=== PATIENT | male | born 1960 | race Caucasian/White ===

== ENCOUNTER 2017-06-16 03:14 | Emergency (ER) | payer BC ==
--- NOTE | 2017-06-16 03:30 | EDM.PDOC ---
ED HPI GENERAL MEDICAL PROBLEM - General Stated Complaint: LEFT FOOT PAIN Time Seen by Provider: 06/16/17 03:26 - History of Present Illness INITIAL COMMENTS - FREE TEXT/NARRATIVE: HISTORY AND PHYSICAL: History of present illness: Patient 37-year-old male history of gouty arthritis presents with concern of left foot pain he did state he had some minor trauma to his left foot recently but is unsure if this is the cause tenderness is quite exquisite and consistent with an episode he had several years prior to his right foot. He denies fever chills nausea vomiting or other complaints Review of systems: As per history of present illness and below otherwise all systems reviewed and negative. Past medical history: As per history of present illness and as reviewed below otherwise noncontributory. Surgical history: As per history of present illness and as reviewed below otherwise noncontributory. Social history: No reported history of drug or alcohol abuse. Family history: As per history of present illness and as reviewed below otherwise noncontributory. Physical exam: HEENT: Atraumatic, normocephalic, pupils reactive, negative for conjunctival pallor or scleral icterus, mucous membranes moist, throat clear, neck supple, nontender, trachea midline. Lungs: Clear to auscultation, breath sounds equal bilaterally, chest nontender. Heart: S1S2, regular, negative for clicks, rubs, or JVD. Abdomen: Soft, nondistended, nontender. Negative for masses or hepatosplenomegaly. Negative for costovertebral tenderness. Pelvis: Stable nontender. Genitourinary: Deferred. Rectal: Deferred. Extremities: Left foot has some swelling and erythema greatest the region of his first digit. No gross deformity neurovascular exam is unremarkable Neuro: Awake, alert, oriented. Cranial nerves II through XII unremarkable. Cerebellum unremarkable. Motor and sensory unremarkable throughout. Exam nonfocal. Diagnostics: X-ray left foot Therapeutics: None Impression: #1 left foot pain #2 probable gouty arthritis Definitive disposition and diagnosis as appropriate pending reevaluation and review of above. - Related Data Allergies Allergy/AdvReac Type Severity Reaction Status Date / Time Penicillins Allergy Itching Verified 10/01/13 15:17 Home Meds: Home Meds oxyCODONE HCl/Acetaminophen [oxyCODONE-Acetaminophen 5-325] 1 tab PO Q4H PRN # 40 10/03/13 [Rx] Social & Family History - Tobacco Use Smoking Status *Q: Never Smoker Second Hand Smoke Exposure: No - Alcohol Use Days Per Week of Alcohol Use: 1 - Recreational Drug Use Recreational Drug Use: No Drug Use in Last 12 Months: No ED ROS GENERAL - Review of Systems Review Of Systems: ROS reveals no pertinent complaints other than HPI. ED EXAM, GENERAL - Physical Exam Exam: See Below (See dictation) Departure - Departure Time of Disposition: 03:29 Disposition: Home, Self-Care 01 Condition: Good Clinical Impression: Foot pain, History of acute gouty arthritis - Discharge Information Referrals: Pete Richter MD [Primary Care Provider] - Additional Instructions: The following information is given to patients seen in the emergency department who are being discharged to home. This information is to outline your options for follow-up care. We provide all patients seen in our emergency department with a follow-up referral. The need for follow-up, as well as the timing and circumstances, are variable depending upon the specifics of your emergency department visit. If you don't have a primary care physician on staff, we will provide you with a referral. We always advise you to contact your personal physician following an emergency department visit to inform them of the circumstance of the visit and for follow-up with them and/or the need for any referrals to a consulting specialist. The emergency department will also refer you to a specialist when appropriate. This referral assures that you have the opportunity for followup care with a specialist. All of these measure are taken in an effort to provide you with optimal care, which includes your followup. Under all circumstances we always encourage you to contact your private physician who remains a resource for coordinating your care. When calling for followup care, please make the office aware that this follow-up is from your recent emergency room visit. If for any reason you are refused follow-up, please contact the [facility] emergency department at and asked to speak to the emergency department charge nurse. [facility] - [facility] Professional [address], [address] [place] [address] Indomethacin as prescribed follow-up private medical doctor call to schedule routine appointment with orthopedic surgery above return as needed as discussed
[2017-06-16] MEDS ORDERED: Ketorolac 60 MG/2 ML SDV IM ONE (06:12)
--- NOTE | 2017-06-16 18:04 | CR ---
EXAM DATE: 06/16/17 PATIENT'S AGE: 57 Patient: STACEY CHACON Facility: [place], [place] Site . Site : [id number] Study: XRay Extremity Left [id number] 4:30:20 AM Ordering Physician: Heidi Martinez Final Report: Indication: Foot swelling Technique: Two views left foot Comparison: None Findings: Bones: Alignment is normal. No fractures or bone lesions. Joint spaces: Unremarkable. Soft tissues: Mild soft tissue swelling of the foot. Impression: Soft tissue swelling in the foot. No osseous abnormality. Dictated by Octavia Bhatti MD @ Jun 16 2017 5:45AM (Electronic Signature) Report Signed by Proxy. MOHIT
== END 2017-06-16 06:35 | disposition home or self-care (01) ==
LOC: MW.ED 03:14
DX: M79.672 Pain in left foot (principal); Z88.0 Allergy status to penicillin
CPT/HCPCS: 73620; 96372; 99283; J1885; 99282

== ENCOUNTER 2018-12-20 00:37 | Observation (INO) | payer BC ==
[2018-12-20] MEDS ORDERED: Diltiazem 25 MG/5 ML SDV IVPUSH ONE ×2 (00:51→05:46)
[2018-12-20] MEDS ORDERED: Aspirin 81 MG Tab.Chew PO ONE (00:52)
--- NOTE | 2018-12-20 00:52 | EDM.PDOC ---
ED HPI GENERAL MEDICAL PROBLEM - General Chief Complaint: Cardiovascular Problem Stated Complaint: HIGH BLOOD PRESSURE Time Seen by Provider: 12/20/18 01:00 - History of Present Illness INITIAL COMMENTS - FREE TEXT/NARRATIVE: HISTORY AND PHYSICAL: History of present illness: Patient's 58-year-old white male with history of hypertension and gout who presents with a concern of palpitations and weakness. He denies chest pain nausea vomiting shortness of breath or diaphoresis Review of systems: As per history of present illness and below otherwise all systems reviewed and negative. Past medical history: As per history of present illness and as reviewed below otherwise noncontributory. Surgical history: As per history of present illness and as reviewed below otherwise noncontributory. Social history: No reported history of drug or alcohol abuse. Family history: As per history of present illness and as reviewed below otherwise noncontributory. Physical exam: HEENT: Atraumatic, normocephalic, pupils reactive, negative for conjunctival pallor or scleral icterus, mucous membranes moist, throat clear, neck supple, nontender, trachea midline. Lungs: Clear to auscultation, breath sounds equal bilaterally, chest nontender. Heart: S1S2, irregularly irregular negative for clicks, rubs, or JVD. Abdomen: Soft, nondistended, nontender. Negative for masses or hepatosplenomegaly. Negative for costovertebral tenderness. Pelvis: Stable nontender. Genitourinary: Deferred. Rectal: Deferred. Extremities: Atraumatic, negative for cords or calf pain. Neurovascular unremarkable. Neuro: Awake, alert, oriented. Cranial nerves II through XII unremarkable. Cerebellum unremarkable. Motor and sensory unremarkable throughout. Exam nonfocal. Diagnostics: CBC CMP troponin PT/INR chest x-ray EKG Therapeutics: IV O2 monitor Cardizem 25 mg IV aspirin 325 mg by mouth Lovenox milligram per kilogram Impression: #1 new onset atrial fibrillation Definitive disposition and diagnosis as appropriate pending reevaluation and review of above. - Related Data Allergies Allergy/AdvReac Type Severity Reaction Status Date / Time Penicillins Allergy Itching Verified 10/01/13 15:17 Home Meds: Home Meds Losartan/Hydrochlorothiazide [Losartan-HCTZ 100-12.5 MG] 1 each PO 12/20/18 [ History] Past Medical History HEENT History: Reports: Other (See Below) Other HEENT History: waers corrective glasses Respiratory History: Reports: Other (See Below) Other Respiratory History: pneumonia when 18yrs old Musculoskeletal History: Reports: Gout Social & Family History - Family History Family Medical History: Noncontributory - Caffeine Use Caffeine Use: Reports: Soda ED ROS GENERAL - Review of Systems Review Of Systems: ROS reveals no pertinent complaints other than HPI. ED EXAM, GENERAL - Physical Exam Exam: See Below (dictation) Course - Vital Signs Last Recorded V/S: Last Vital Signs Temp 36.6 C 12/20/18 00:59 Pulse 80 12/20/18 01:17 Resp 18 12/20/18 01:17 BP 102/57 L 12/20/18 01:17 Pulse Ox 96 12/20/18 01:17 - Orders/Labs/Meds Orders: Active Orders 24 hr Category Date Time Status Patient Status [ADT] Stat ADT 12/20/18 01:05 Active Cardiac Monitoring [RC] . DIRECTED Care 12/20/18 00:49 Active EKG Documentation Completion [RC] STAT Care 12/20/18 00:50 Active Pulse Oximetry [RC] ASDIRECTED Care 12/20/18 00:49 Active UA RFX REMINGTON AND CULT IF INDIC [URIN] Stat Lab 12/20/18 00:49 Ordered Sodium Chloride 0.9% [Normal Saline] 500 ml Med 12/20/18 01:30 Active IV .BOLUS Saline Lock Insert [OM.PC] Stat Oth 12/20/18 00:49 Ordered Medication Orders Sodium Chloride (Normal Saline) 500 mls @ 999 mls/hr IV .BOLUS MAYNOR Last Admin: 12/20/18 01:26 Dose: 999 mls/hr Labs: Laboratory Tests 12/20/18 12/20/18 12/20/18 Range/Units 00:45 00:45 00:45 WBC 6.62 (4.0-11.0) K/uL RBC 5.16 (4.50-5.90) M/uL Hgb 16.3 (13.0-17.0) g/dL Hct 47.0 (38.0-50.0) % MCV 91.1 (80.0-98.0) fL MCH 31.6 (27.0-32.0) pg MCHC 34.7 (31.0-37.0) g/dL RDW Std Deviation 41.8 (28.0-62.0) fl RDW Coeff of Lacy 13 (11.0-15.0) % Plt Count 183 (150-400) K/uL MPV 11.30 (7.40-12.00) fL Neut % (Auto) 39.2 L (48.0-80.0) % Lymph % (Auto) 42.6 H (16.0-40.0) % Morrison % (Auto) 11.0 (0.0-15.0) % Eos % (Auto) 6.6 (0.0-7.0) % Baso % (Auto) 0.6 (0.0-1.5) % Neut # (Auto) 2.6 (1.4-5.7) K/uL Lymph # (Auto) 2.8 H (0.6-2.4) K/uL Morrison # (Auto) 0.7 (0.0-0.8) K/uL Eos # (Auto) 0.4 (0.0-0.7) K/uL Baso # (Auto) 0.0 (0.0-0.1) K/uL Nucleated RBC % 0.0 /100WBC Nucleated RBCs # 0 K/uL INR 0.94 Sodium 136 (136-148) mmol/L Potassium 3.5 (3.5-5.1) mmol/L Chloride 101 (98-107) mmol/L Carbon Dioxide 27.2 (21.0-32.0) mmol/L BUN 16 (7.0-18.0) mg/dL Creatinine 1.1 (0.8-1.3) mg/dL Est Cr Clr Drug Dosing 84.74 mL/min Estimated GFR (MDRD) > 60.0 ml/min Glucose 100 (74-106) mg/dL Calcium 9.0 (8.5-10.1) mg/dL Total Bilirubin 0.4 (0.2-1.0) mg/dL AST 32 (15-37) IU/L ALT 58 (14-63) IU/L Alkaline Phosphatase 106 (46-116) U/L Troponin I < 0.050 (0.000-0.056) ng/mL Total Protein 7.6 (6.4-8.2) g/dL Albumin 4.0 (3.4-5.0) g/dL Globulin 3.6 (2.6-4.0) g/dL Albumin/Globulin Ratio 1.1 (0.9-1.6) Meds: Medications Generic Name Dose Route Start Last Admin Trade Name Juliet PRN Reason Stop Dose Admin Sodium Chloride 500 mls @ 999 mls/hr 12/20/18 01:30 12/20/18 01:26 Normal Saline IV 999 mls/hr .BOLUS MAYNOR Administration Discontinued Medications Generic Name Dose Route Start Last Admin Trade Name Juliet PRN Reason Stop Dose Admin Aspirin 324 mg 12/20/18 00:52 12/20/18 01:09 Aspirin PO 12/20/18 00:53 324 mg ONETIME ONE Administration Diltiazem HCl 25 mg 12/20/18 00:51 12/20/18 01:10 Diltiazem IVPUSH 12/20/18 00:52 25 mg ONETIME ONE Administration Enoxaparin Sodium 123 mg 12/20/18 00:54 12/20/18 01:10 Lovenox SUBCUT 12/20/18 00:55 123 mg ONETIME ONE Administration Departure - Departure Time of Disposition: 02:04 Disposition: Refer to Observation Condition: Good Clinical Impression: Atrial fibrillation with RVR - My Orders Last 24 Hours: My Active Orders 12/20/18 00:49 Cardiac Monitoring [RC] . DIRECTED Pulse Oximetry [RC] ASDIRECTED UA RFX REMINGTON AND CULT IF INDIC [URIN] Stat Saline Lock Insert [OM.PC] Stat 12/20/18 00:50 EKG Documentation Completion [RC] STAT 12/20/18 01:05 Patient Status [ADT] Stat 12/20/18 01:30 Sodium Chloride 0.9% [Normal Saline] 500 ml IV .BOLUS - Assessment/Plan Last 24 Hours: My Active Orders 12/20/18 00:49 Cardiac Monitoring [RC] . DIRECTED Pulse Oximetry [RC] ASDIRECTED UA RFX REMINGTON AND CULT IF INDIC [URIN] Stat Saline Lock Insert [OM.PC] Stat 12/20/18 00:50 EKG Documentation Completion [RC] STAT 12/20/18 01:05 Patient Status [ADT] Stat 12/20/18 01:30 Sodium Chloride 0.9% [Normal Saline] 500 ml IV .BOLUS
[2018-12-20] MEDS ORDERED: Enoxaparin 150 MG/1 ML Syringe SUBCUT ONE (00:54)
[2018-12-20] MEDS ORDERED: Sodium Chloride 0.9% 500 ML IV SCH (01:30)
--- NOTE | 2018-12-20 01:36 | CR ---
INDICATION: Shortness of breath TECHNIQUE: Chest radiograph 1 view COMPARISON: None FINDINGS: Moderate degradation of image quality noted due to body habitus. Mediastinum: The mediastinum is normal in appearance. The heart silhouette is normal in size and morphology. Lung: Both lungs are unremarkable in appearance. No sign of pleural effusion seen. No pneumothorax is identified. IMPRESSION: 1. No acute cardiopulmonary disease is seen. Dictated by: Say Bell MD @ 12/20/2018 01:34:09 (Electronically Signed)
[2018-12-20 01:43] LABS: CHLORIDE,CL 101 mmol/L (98-107); SODIUM,NA 136 mmol/L (136-148)
[2018-12-20 06:55] LABS: CHLORIDE,CL 102 mmol/L (98-107); SODIUM,NA 138 mmol/L (136-148)
[2018-12-20] MEDS ORDERED: Ondansetron 4 MG/2 ML SDV IVPUSH PRN (08:18)
[2018-12-20] MEDS ORDERED: Acetaminophen 325 MG Tab PO PRN (08:18)
--- NOTE | 2018-12-20 08:21 | PCM.HP ---
H&P History of Present Illness - General Date of Service: 12/20/18 Admit Problem/Dx: Admission Diagnosis/Problem Admission Diagnosis/Problem Atrial fibrillation Source of Information: Patient History Limitations: Reports: No Limitations - History of Present Illness Initial Comments - Free Text/Narative: This 58 year old male with pmh of HTN presented to the ED with complaints of palpitations and lightheadedness. He reports the palpitations have been there off and on for a few months, but last night they were very severe and caused lightheadedness. He denies chest pain or diaphoresis. No abdominal pain or nausea. He reports he has also noticed his BP elevating more than usual as well , he attempted to get into his PCP, but couldn't for a very long time. He denies history of CAD or DM. No CHF. He denies tobacco abuse and no alcohol or recreational drug use. In the ED, CBC WNL, as well as BMP. CXR negative. HR elevated as high as 150's afib. He was given Diltiazem 20 mg IV, which brought HR down to 80s, still afib. He was given full dose Lovenox and ASA in the ED. He will be admitted for new onset a fib. no pain Pain Score (Numeric/FACES): 0 - Related Data Allergies/Adverse Reactions: Allergies Allergy/AdvReac Type Severity Reaction Status Date / Time Penicillins Allergy Itching Verified 12/20/18 02:29 Home Medications: Home Meds Losartan/Hydrochlorothiazide [Losartan-HCTZ 100-12.5 MG] 1 each PO DAILY [History] Past Medical History HEENT History: Reports: Other (See Below) Other HEENT History: waers corrective glasses Cardiovascular History: Reports: Hypertension. Denies: Afib, Blood Clots/VTE/ DVT, CAD, NM, Stents Respiratory History: Reports: None. Denies: Asthma, COPD, PE Gastrointestinal History: Reports: None. Denies: GERD, GI Bleed Genitourinary History: Reports: None. Denies: UTI, Recurrent Musculoskeletal History: Reports: Gout Neurological History: Reports: None. Denies: CVA, TIA Psychiatric History: Reports: None Endocrine/Metabolic History: Reports: None. Denies: Diabetes, Type II, Hypothyroidism Hematologic History: Reports: None Dermatologic History: Reports: None - Infectious Disease History Infectious Disease History: Reports: None - Past Surgical History Cardiovascular Surgical History: Reports: None Social & Family History - Family History Family Medical History: Noncontributory - Tobacco Use Smoking Status *Q: Never Smoker - Caffeine Use Caffeine Use: Reports: Coffee - Recreational Drug Use Recreational Drug Use: No - Living Situation & Occupation Occupation: Employed H&P Review of Systems - Review of Systems: Review Of Systems: See Below General: Denies: Fever, Chills, Malaise, Weakness HEENT: Denies: Hearing Changes, Sinus Congestion, Sore Throat, Visual Changes Pulmonary: Reports: Shortness of Breath (with palpitations) Cardiovascular: Reports: Palpitations, Lightheadedness. Denies: Chest Pain Gastrointestinal: Reports: No Symptoms. Denies: Abdominal Pain, Nausea, Vomiting Genitourinary: Reports: No Symptoms. Denies: Dysuria, Frequency, Burning Musculoskeletal: Reports: No Symptoms Skin: Reports: No Symptoms Psychiatric: Reports: No Symptoms Neurological: Reports: No Symptoms Hematologic/Lymphatic: Reports: No Symptoms Immunologic: Reports: No Symptoms Exam - Exam Exam: See Below - Vital Signs Vital Signs: Last Vital Signs Temp 96.9 F 12/20/18 03:05 Pulse 98 12/20/18 03:05 Resp 18 12/20/18 03:05 BP 159/77 H 12/20/18 03:05 Pulse Ox 96 12/20/18 03:05 Weight: 123.785 kg - Exam General: Alert, Oriented, Cooperative HEENT: Conjunctiva Clear, Mucosa Moist & [place], Pupils Equal Neck: Supple, Trachea Midline Lungs: Clear to Auscultation, Normal Respiratory Effort Cardiovascular: Regular Rate, Normal S1, Normal S2, Irregular Rhythm. No: Tachycardia, Systolic Murmur GI/Abdominal Exam: Normal Bowel Sounds, Soft, Non-Tender, No Distention Back Exam: Normal Inspection, Full Range of Motion Extremities: Normal Inspection, Normal Range of Motion, Non-Tender, No Pedal Edema Neuro Extensive - Mental Status: Alert, Oriented x3 Neuro Extensive - Motor, Sensory, Reflexes: CN II-XII Intact Psychiatric: Alert, Normal Affect, Normal Mood - Patient Data Lab Results Last 24 hrs: Laboratory Results - last 24 hr 12/20/18 12/20/18 12/20/18 Range/Units 00:45 00:45 00:45 WBC 6.62 (4.0-11.0) K/uL RBC 5.16 (4.50-5.90) M/uL Hgb 16.3 (13.0-17.0) g/dL Hct 47.0 (38.0-50.0) % MCV 91.1 (80.0-98.0) fL MCH 31.6 (27.0-32.0) pg MCHC 34.7 (31.0-37.0) g/dL RDW Std Deviation 41.8 (28.0-62.0) fl RDW Coeff of Lacy 13 (11.0-15.0) % Plt Count 183 (150-400) K/uL MPV 11.30 (7.40-12.00) fL Neut % (Auto) 39.2 L (48.0-80.0) % Lymph % (Auto) 42.6 H (16.0-40.0) % [place] % (Auto) 11.0 (0.0-15.0) % Eos % (Auto) 6.6 (0.0-7.0) % Baso % (Auto) 0.6 (0.0-1.5) % Neut # (Auto) 2.6 (1.4-5.7) K/uL Lymph # (Auto) 2.8 H (0.6-2.4) K/uL [place] # (Auto) 0.7 (0.0-0.8) K/uL Eos # (Auto) 0.4 (0.0-0.7) K/uL Baso # (Auto) 0.0 (0.0-0.1) K/uL Nucleated RBC % 0.0 /100WBC Nucleated RBCs # 0 K/uL INR 0.94 Sodium 136 (136-148) mmol/L Potassium 3.5 (3.5-5.1) mmol/L Chloride 101 (98-107) mmol/L Carbon Dioxide 27.2 (21.0-32.0) mmol/L BUN 16 (7.0-18.0) mg/dL Creatinine 1.1 (0.8-1.3) mg/dL Est Cr Clr Drug Dosing 84.74 mL/min Estimated GFR (MDRD) > 60.0 ml/min Glucose 100 (74-106) mg/dL Calcium 9.0 (8.5-10.1) mg/dL Total Bilirubin 0.4 (0.2-1.0) mg/dL AST 32 (15-37) IU/L ALT 58 (14-63) IU/L Alkaline Phosphatase 106 (46-116) U/L Troponin I < 0.050 (0.000-0.056) ng/mL Total Protein 7.6 (6.4-8.2) g/dL Albumin 4.0 (3.4-5.0) g/dL Globulin 3.6 (2.6-4.0) g/dL Albumin/Globulin Ratio 1.1 (0.9-1.6) Urine Color Urine Appearance Urine pH (5.0-8.0) Ur Specific [place] (1.001-1.035) Urine Protein (NEGATIVE) mg/dL Urine Glucose (UA) (NEGATIVE) mg/dL Urine Ketones (NEGATIVE) mg/dL Urine Occult Blood (NEGATIVE) Urine Nitrite (NEGATIVE) Urine Bilirubin (NEGATIVE) Urine Urobilinogen (<2.0) EU/dL Ur Leukocyte Esterase (NEGATIVE) 12/20/18 12/20/18 12/20/18 Range/Units 02:10 05:35 05:35 WBC 5.99 (4.0-11.0) K/uL RBC 4.92 (4.50-5.90) M/uL Hgb 15.9 (13.0-17.0) g/dL Hct 44.7 (38.0-50.0) % MCV 90.9 (80.0-98.0) fL MCH 32.3 H (27.0-32.0) pg MCHC 35.6 (31.0-37.0) g/dL RDW Std Deviation 41.6 (28.0-62.0) fl RDW Coeff of Lacy 13 (11.0-15.0) % Plt Count 192 (150-400) K/uL MPV 11.30 (7.40-12.00) fL Neut % (Auto) 47.1 L (48.0-80.0) % Lymph % (Auto) 35.6 (16.0-40.0) % [place] % (Auto) 9.7 (0.0-15.0) % Eos % (Auto) 7.3 H (0.0-7.0) % Baso % (Auto) 0.3 (0.0-1.5) % Neut # (Auto) 2.8 (1.4-5.7) K/uL Lymph # (Auto) 2.1 (0.6-2.4) K/uL [place] # (Auto) 0.6 (0.0-0.8) K/uL Eos # (Auto) 0.4 (0.0-0.7) K/uL Baso # (Auto) 0.0 (0.0-0.1) K/uL Nucleated RBC % 0.0 /100WBC Nucleated RBCs # 0 K/uL INR Sodium 138 (136-148) mmol/L Potassium 3.8 (3.5-5.1) mmol/L Chloride 102 (98-107) mmol/L Carbon Dioxide 27.2 (21.0-32.0) mmol/L BUN 18 (7.0-18.0) mg/dL Creatinine 1.1 (0.8-1.3) mg/dL Est Cr Clr Drug Dosing 87.18 mL/min Estimated GFR (MDRD) > 60.0 ml/min Glucose 104 (74-106) mg/dL Calcium 8.7 (8.5-10.1) mg/dL Total Bilirubin (0.2-1.0) mg/dL AST (15-37) IU/L ALT (14-63) IU/L Alkaline Phosphatase (46-116) U/L Troponin I (0.000-0.056) ng/mL Total Protein (6.4-8.2) g/dL Albumin (3.4-5.0) g/dL Globulin (2.6-4.0) g/dL Albumin/Globulin Ratio (0.9-1.6) Urine Color YELLOW Urine Appearance CLEAR Urine pH 6.0 (5.0-8.0) Ur Specific [place] <= 1.005 (1.001-1.035) Urine Protein NEGATIVE (NEGATIVE) mg/dL Urine Glucose (UA) NEGATIVE (NEGATIVE) mg/dL Urine Ketones NEGATIVE (NEGATIVE) mg/dL Urine Occult Blood NEGATIVE (NEGATIVE) Urine Nitrite NEGATIVE (NEGATIVE) Urine Bilirubin NEGATIVE (NEGATIVE) Urine Urobilinogen 0.2 (<2.0) EU/dL Ur Leukocyte Esterase NEGATIVE (NEGATIVE) Result Diagrams: 12/20/18 05:35 06/27/19 05:35 EKG INTERPRETATION EKG Date: 12/20/18 Rhythm: A-Fib QRS: Normal ST-T: Normal QT: Normal *Q Meaningful Use (ADM) - VTE Risk Assess *Q Each Risk Factor Represents 1 Point: Age 41 - 59 years Total Score 1 Point Risk Factors: 1 Each Risk Factor Represents 2 Points: None Total Score 2 Point Risk Factors: 0 Each Risk Factor Represents 3 Points: None Total Score 3 Point Risk Factors: 0 Each Risk Factor Represents 5 Points: None Total Score 5 Point Risk Factors: 0 Venous Thromboembolism Risk Factor Score *Q: 1 - Problem List (1) Atrial fibrillation with RVR SNOMED Code(s): 541355672861078 ICD Code: I48.91 - UNSPECIFIED ATRIAL FIBRILLATION Status: Acute Current Visit: Yes (2) HTN (hypertension) SNOMED Code(s): 09515561 ICD Code: I10 - ESSENTIAL (PRIMARY) HYPERTENSION Status: Chronic Current Visit: Yes Qualifiers: Hypertension type: essential hypertension Qualified Code(s): I10 - Essential (primary) hypertension Problem List Initiated/Reviewed/Updated: Yes Orders Last 24hrs: Active Orders 24 hr Category Date Time Status Patient Status [ADT] Stat ADT 12/20/18 01:05 Active Cardiac Monitoring [RC] . DIRECTED Care 12/20/18 00:49 Active Intake and Output [RC] QSHIFT Care 12/20/18 08:18 Ordered Oxygen Therapy [RC] PRN Care 12/20/18 08:18 Ordered Pulse Oximetry [RC] ASDIRECTED Care 12/20/18 00:49 Active Telemetry Monitoring [Cardiac Monitoring] [RC] . Care 12/20/18 03:59 Active DIRECTED Up ad Isabel [RC] ASDIRECTED Care 12/20/18 08:18 Ordered VTE/DVT Education [RC] PER UNIT ROUTINE Care 12/20/18 08:18 Ordered Vital Signs [RC] Q4H Care 12/20/18 08:18 Ordered Cardiac [Heart Healthy Diet] [DIET] Diet 12/20/18 Breakfast Active GLYCOSYLATED HEMOGLOBIN,HGBA1C [CHEM] Routine Lab 12/20/18 08:19 Ordered LIPID PANEL [CHEM] Routine Lab 12/20/18 08:19 Ordered MAGNESIUM [CHEM] Routine Lab 12/20/18 08:08 Ordered Acetaminophen [Tylenol] Med 12/20/18 08:18 Ordered 650 mg PO Q4H PRN Diltiazem IR [Cardizem] Med 12/20/18 08:15 Ordered 30 mg PO Q6HR Ondansetron [Zofran] Med 12/20/18 08:18 Ordered 4 mg IVPUSH Q4H PRN Sodium Chloride 0.9% [Normal Saline] 500 ml Med 12/20/18 01:30 Active IV .BOLUS Saline Lock Insert [OM.PC] Stat Oth 12/20/18 00:49 Ordered Resuscitation Status Routine Resus Stat 12/20/18 08:18 Ordered Medication Orders Acetaminophen (Tylenol) 650 mg PO Q4H PRN PRN Reason: Pain (Mild 1-3)/fever Diltiazem HCl (Cardizem) 30 mg PO Q6HR MAYNOR Sodium Chloride (Normal Saline) 500 mls @ 999 mls/hr IV .BOLUS MAYNOR Last Admin: 12/20/18 01:26 Dose: 999 mls/hr Ondansetron HCl (Zofran) 4 mg IVPUSH Q4H PRN PRN Reason: Nausea Assessment/Plan Comment:: This 58 year old male admitted for new onset afib 1. Atrial fibrillation: continues to have palpitations intermittently. Will start Diltiazem 30 mg PO Q6hr and monitor on telemetry. Monitor BP as well. Magnesium 2.0, Potassium 3.8 Will supplement with 40 meq KCL x1. Will TSH. Lipid panel showed elevagted Triglycerides and total cholesterol, will start Atorvastatin 40 mg daily. CHADSVASC score 1 will continue ASA. Will arrange follow up with PCP and Dr Fisher, cardiology 2. HTN: Stable. Holding Losartan/HCTZ while starting Diltiazem. VTE prophylaxis: Lovenox Dispo: 1 day pending HR control.
[2018-12-20 09:10] LABS: HEMOGLOBIN A1C 5.5 % (4.5-6.2)
[2018-12-20] MEDS: Diltiazem IR 30 MG Tab PO SCH ×2 (09:20→14:25)
[2018-12-20] MEDS ORDERED: Potassium Chloride 20 MEQ Tab.ER PO ONE (12:09)
[2018-12-20] MEDS ORDERED: Diltiazem IR 30 MG Tab PO SCH (15:00)
--- NOTE | 2018-12-20 16:10 | PCM.DCSUM1 ---
Discharge Summary - Hospital Course Brief History: This 58 year old male with pmh of HTN presented to the ED with complaints of palpitations and lightheadedness. He reports the palpitations have been there off and on for a few months, but last night they were very severe and caused lightheadedness. He denies chest pain or diaphoresis. No abdominal pain or nausea. He reports he has also noticed his BP elevating more than usual as well, he attempted to get into his PCP, but couldn't for a very long time. He denies history of CAD or DM. No CHF. He denies tobacco abuse and no alcohol or recreational drug use. In the ED, CBC WNL, as well as BMP. CXR negative. HR elevated as high as 150's afib. He was given Diltiazem 20 mg IV, which brought HR down to 80s, still afib. He was given full dose Lovenox and ASA in the ED. He will be admitted for new onset a fib. - Discharge Data Discharge Date: 12/20/18 Discharge Disposition: Home, Self-Care 01 Condition: Good - Discharge Diagnosis/Problem(s) (1) Atrial fibrillation with RVR SNOMED Code(s): 298632027955165 ICD Code: I48.91 - UNSPECIFIED ATRIAL FIBRILLATION Status: Acute Current Visit: Yes (2) HTN (hypertension) SNOMED Code(s): 51465960 ICD Code: I10 - ESSENTIAL (PRIMARY) HYPERTENSION Status: Chronic Current Visit: Yes Qualifiers: Hypertension type: essential hypertension Qualified Code(s): I10 - Essential (primary) hypertension - Patient Instructions Diet: Heart Healthy Diet Activity: As Tolerated Showering/Bathing: May Shower Notify Provider of: Fever, Increased Pain, Swelling and Redness, Drainage, Nausea and/or Vomiting - Discharge Plan *PRESCRIPTION DRUG MONITORING PROGRAM REVIEWED*: Not Applicable *COPY OF PRESCRIPTION DRUG MONITORING REPORT IN PATIENT ELLA: Not Applicable Prescriptions/Med Rec: Aspirin 325 mg PO DAILY #30 tablet atorvaSTATin [Lipitor] 40 mg PO BEDTIME #30 tablet Diltiazem HCl [Diltiazem 24Hr ER] 120 mg PO DAILY #30 cap.er.24h Home Medications: Home Meds Aspirin 325 mg PO DAILY #30 tablet 12/20/18 [Rx] Diltiazem HCl [Diltiazem 24Hr ER] 120 mg PO DAILY #30 cap.er.24h 12/20/18 [Rx] atorvaSTATin [Lipitor] 40 mg PO BEDTIME #30 tablet 12/20/18 [Rx] Patient Handouts: Atrial Fibrillation, [id number] Referrals: Kali Fisher MD [Physician] - Pete Richter MD [Ordering Only Provider] - 01/04/19 12:30 pm - Discharge Summary/Plan Comment DC Time >30 min.: No Discharge Summary/Plan Comment: Admitting Diagnoses: New onset afib Discharge Diagnoses: New onset Afib Hyperlipidemia Other PMH Obesity HTN Cosme was admitted for new onset atrial fibrillation. He was started on Diltiazem 30 mg Q6hr, HR was controlled then he converted back to sinus rhythm this afternoon. He is feeling much better and is eager to be discharged home as he is heading to [place] for his daughters wedding. BP is stable on Diltiazem, he was instructed to hold Losartan/HCTZ for now. PCP can reevaluate the need for this at follow up. Cholesterol medication will be added as triglycerides at 400s and LDL unable to be detected due to triglycerides. Total cholesterol elevated 230s, HDL 39. CHADS score 1, so he will remain on ASA daily. He will follow up with PCP and Dr Fisher, cardiology. He is to return to ED or clinic if concerns should arise. - General Info Date of Service: 12/20/18 Admission Dx/Problem (Free Text: Admission Diagnosis/Problem Admission Diagnosis/Problem Atrial fibrillation Subjective Update: Ambulating in hallway, very eager to be discharged home. No further palpitations. No chest pain. Converted to SR 1236 Functional Status: Reports: Pain Controlled, Tolerating Diet, Ambulating, Urinating - Review of Systems General: Reports: No Symptoms. Denies: Weakness, Fatigue HEENT: Reports: No Symptoms. Denies: Visual Changes Pulmonary: Reports: No Symptoms. Denies: Shortness of Breath Cardiovascular: Reports: No Symptoms. Denies: Chest Pain Gastrointestinal: Reports: No Symptoms. Denies: Abdominal Pain, Nausea, Vomiting Genitourinary: Reports: No Symptoms Musculoskeletal: Reports: No Symptoms Skin: Reports: No Symptoms Neurological: Reports: No Symptoms Psychiatric: Reports: No Symptoms - Patient Data Vitals - Most Recent: Last Vital Signs Temp 97.8 F 12/20/18 11:57 Pulse 80 12/20/18 14:57 Resp 18 12/20/18 11:57 BP 120/69 12/20/18 14:57 Pulse Ox 94 L 12/20/18 14:57 Weight - Most Recent: 123.785 kg I&O - Last 24 hours: Intake & Output 12/20/18 12/20/18 12/20/18 06:59 14:59 22:59 Intake Total 0 Output Total 0 Balance 0 Lab Results - Last 24 hrs: Laboratory Results - last 24 hr 12/20/18 12/20/18 12/20/18 Range/Units 00:45 00:45 00:45 WBC 6.62 (4.0-11.0) K/uL RBC 5.16 (4.50-5.90) M/uL Hgb 16.3 (13.0-17.0) g/dL Hct 47.0 (38.0-50.0) % MCV 91.1 (80.0-98.0) fL MCH 31.6 (27.0-32.0) pg MCHC 34.7 (31.0-37.0) g/dL RDW Std Deviation 41.8 (28.0-62.0) fl RDW Coeff of Lacy 13 (11.0-15.0) % Plt Count 183 (150-400) K/uL MPV 11.30 (7.40-12.00) fL Neut % (Auto) 39.2 L (48.0-80.0) % Lymph % (Auto) 42.6 H (16.0-40.0) % [place] % (Auto) 11.0 (0.0-15.0) % Eos % (Auto) 6.6 (0.0-7.0) % Baso % (Auto) 0.6 (0.0-1.5) % Neut # (Auto) 2.6 (1.4-5.7) K/uL Lymph # (Auto) 2.8 H (0.6-2.4) K/uL [place] # (Auto) 0.7 (0.0-0.8) K/uL Eos # (Auto) 0.4 (0.0-0.7) K/uL Baso # (Auto) 0.0 (0.0-0.1) K/uL Nucleated RBC % 0.0 /100WBC Nucleated RBCs # 0 K/uL INR 0.94 Sodium 136 (136-148) mmol/L Potassium 3.5 (3.5-5.1) mmol/L Chloride 101 (98-107) mmol/L Carbon Dioxide 27.2 (21.0-32.0) mmol/L BUN 16 (7.0-18.0) mg/dL Creatinine 1.1 (0.8-1.3) mg/dL Est Cr Clr Drug Dosing 84.74 mL/min Estimated GFR (MDRD) > 60.0 ml/min Glucose 100 (74-106) mg/dL Hemoglobin A1c (4.5-6.2) % Calcium 9.0 (8.5-10.1) mg/dL Magnesium (1.8-2.4) mg/dL Total Bilirubin 0.4 (0.2-1.0) mg/dL AST 32 (15-37) IU/L ALT 58 (14-63) IU/L Alkaline Phosphatase 106 (46-116) U/L Troponin I < 0.050 (0.000-0.056) ng/mL Total Protein 7.6 (6.4-8.2) g/dL Albumin 4.0 (3.4-5.0) g/dL Globulin 3.6 (2.6-4.0) g/dL Albumin/Globulin Ratio 1.1 (0.9-1.6) Triglycerides (0-200) mg/dL Cholesterol (50-200) mg/dL HDL Cholesterol (40-60) mg/dL Cholesterol/HDL Ratio (3.3-6.0) TSH 3rd Generation (0.36-3.74) uIU/mL Urine Color Urine Appearance Urine pH (5.0-8.0) Ur Specific [place] (1.001-1.035) Urine Protein (NEGATIVE) mg/dL Urine Glucose (UA) (NEGATIVE) mg/dL Urine Ketones (NEGATIVE) mg/dL Urine Occult Blood (NEGATIVE) Urine Nitrite (NEGATIVE) Urine Bilirubin (NEGATIVE) Urine Urobilinogen (<2.0) EU/dL Ur Leukocyte Esterase (NEGATIVE) 12/20/18 12/20/18 12/20/18 Range/Units 02:10 05:35 05:35 WBC 5.99 (4.0-11.0) K/uL RBC 4.92 (4.50-5.90) M/uL Hgb 15.9 (13.0-17.0) g/dL Hct 44.7 (38.0-50.0) % MCV 90.9 (80.0-98.0) fL MCH 32.3 H (27.0-32.0) pg MCHC 35.6 (31.0-37.0) g/dL RDW Std Deviation 41.6 (28.0-62.0) fl RDW Coeff of Lacy 13 (11.0-15.0) % Plt Count 192 (150-400) K/uL MPV 11.30 (7.40-12.00) fL Neut % (Auto) 47.1 L (48.0-80.0) % Lymph % (Auto) 35.6 (16.0-40.0) % [place] % (Auto) 9.7 (0.0-15.0) % Eos % (Auto) 7.3 H (0.0-7.0) % Baso % (Auto) 0.3 (0.0-1.5) % Neut # (Auto) 2.8 (1.4-5.7) K/uL Lymph # (Auto) 2.1 (0.6-2.4) K/uL [place] # (Auto) 0.6 (0.0-0.8) K/uL Eos # (Auto) 0.4 (0.0-0.7) K/uL Baso # (Auto) 0.0 (0.0-0.1) K/uL Nucleated RBC % 0.0 /100WBC Nucleated RBCs # 0 K/uL INR Sodium 138 (136-148) mmol/L Potassium 3.8 (3.5-5.1) mmol/L Chloride 102 (98-107) mmol/L Carbon Dioxide 27.2 (21.0-32.0) mmol/L BUN 18 (7.0-18.0) mg/dL Creatinine 1.1 (0.8-1.3) mg/dL Est Cr Clr Drug Dosing 87.18 mL/min Estimated GFR (MDRD) > 60.0 ml/min Glucose 104 (74-106) mg/dL Hemoglobin A1c (4.5-6.2) % Calcium 8.7 (8.5-10.1) mg/dL Magnesium (1.8-2.4) mg/dL Total Bilirubin (0.2-1.0) mg/dL AST (15-37) IU/L ALT (14-63) IU/L Alkaline Phosphatase (46-116) U/L Troponin I (0.000-0.056) ng/mL Total Protein (6.4-8.2) g/dL Albumin (3.4-5.0) g/dL Globulin (2.6-4.0) g/dL Albumin/Globulin Ratio (0.9-1.6) Triglycerides (0-200) mg/dL Cholesterol (50-200) mg/dL HDL Cholesterol (40-60) mg/dL Cholesterol/HDL Ratio (3.3-6.0) TSH 3rd Generation (0.36-3.74) uIU/mL Urine Color YELLOW Urine Appearance CLEAR Urine pH 6.0 (5.0-8.0) Ur Specific [place] <= 1.005 (1.001-1.035) Urine Protein NEGATIVE (NEGATIVE) mg/dL Urine Glucose (UA) NEGATIVE (NEGATIVE) mg/dL Urine Ketones NEGATIVE (NEGATIVE) mg/dL Urine Occult Blood NEGATIVE (NEGATIVE) Urine Nitrite NEGATIVE (NEGATIVE) Urine Bilirubin NEGATIVE (NEGATIVE) Urine Urobilinogen 0.2 (<2.0) EU/dL Ur Leukocyte Esterase NEGATIVE (NEGATIVE) 12/20/18 12/20/18 12/20/18 Range/Units 05:35 05:35 05:35 WBC (4.0-11.0) K/uL RBC (4.50-5.90) M/uL Hgb (13.0-17.0) g/dL Hct (38.0-50.0) % MCV (80.0-98.0) fL MCH (27.0-32.0) pg MCHC (31.0-37.0) g/dL RDW Std Deviation (28.0-62.0) fl RDW Coeff of Lacy (11.0-15.0) % Plt Count (150-400) K/uL MPV (7.40-12.00) fL Neut % (Auto) (48.0-80.0) % Lymph % (Auto) (16.0-40.0) % [place] % (Auto) (0.0-15.0) % Eos % (Auto) (0.0-7.0) % Baso % (Auto) (0.0-1.5) % Neut # (Auto) (1.4-5.7) K/uL Lymph # (Auto) (0.6-2.4) K/uL [place] # (Auto) (0.0-0.8) K/uL Eos # (Auto) (0.0-0.7) K/uL Baso # (Auto) (0.0-0.1) K/uL Nucleated RBC % /100WBC Nucleated RBCs # K/uL INR Sodium (136-148) mmol/L Potassium (3.5-5.1) mmol/L Chloride (98-107) mmol/L Carbon Dioxide (21.0-32.0) mmol/L BUN (7.0-18.0) mg/dL Creatinine (0.8-1.3) mg/dL Est Cr Clr Drug Dosing mL/min Estimated GFR (MDRD) ml/min Glucose (74-106) mg/dL Hemoglobin A1c 5.5 (4.5-6.2) % Calcium (8.5-10.1) mg/dL Magnesium 2.0 (1.8-2.4) mg/dL Total Bilirubin (0.2-1.0) mg/dL AST (15-37) IU/L ALT (14-63) IU/L Alkaline Phosphatase (46-116) U/L Troponin I (0.000-0.056) ng/mL Total Protein (6.4-8.2) g/dL Albumin (3.4-5.0) g/dL Globulin (2.6-4.0) g/dL Albumin/Globulin Ratio (0.9-1.6) Triglycerides 472 H (0-200) mg/dL Cholesterol 237 H (50-200) mg/dL HDL Cholesterol 39 L (40-60) mg/dL Cholesterol/HDL Ratio 6.1 H (3.3-6.0) TSH 3rd Generation (0.36-3.74) uIU/mL Urine Color Urine Appearance Urine pH (5.0-8.0) Ur Specific [place] (1.001-1.035) Urine Protein (NEGATIVE) mg/dL Urine Glucose (UA) (NEGATIVE) mg/dL Urine Ketones (NEGATIVE) mg/dL Urine Occult Blood (NEGATIVE) Urine Nitrite (NEGATIVE) Urine Bilirubin (NEGATIVE) Urine Urobilinogen (<2.0) EU/dL Ur Leukocyte Esterase (NEGATIVE) 12/20/18 Range/Units 05:35 WBC (4.0-11.0) K/uL RBC (4.50-5.90) M/uL Hgb (13.0-17.0) g/dL Hct (38.0-50.0) % MCV (80.0-98.0) fL MCH (27.0-32.0) pg MCHC (31.0-37.0) g/dL RDW Std Deviation (28.0-62.0) fl RDW Coeff of Lacy (11.0-15.0) % Plt Count (150-400) K/uL MPV (7.40-12.00) fL Neut % (Auto) (48.0-80.0) % Lymph % (Auto) (16.0-40.0) % [place] % (Auto) (0.0-15.0) % Eos % (Auto) (0.0-7.0) % Baso % (Auto) (0.0-1.5) % Neut # (Auto) (1.4-5.7) K/uL Lymph # (Auto) (0.6-2.4) K/uL [place] # (Auto) (0.0-0.8) K/uL Eos # (Auto) (0.0-0.7) K/uL Baso # (Auto) (0.0-0.1) K/uL Nucleated RBC % /100WBC Nucleated RBCs # K/uL INR Sodium (136-148) mmol/L Potassium (3.5-5.1) mmol/L Chloride (98-107) mmol/L Carbon Dioxide (21.0-32.0) mmol/L BUN (7.0-18.0) mg/dL Creatinine (0.8-1.3) mg/dL Est Cr Clr Drug Dosing mL/min Estimated GFR (MDRD) ml/min Glucose (74-106) mg/dL Hemoglobin A1c (4.5-6.2) % Calcium (8.5-10.1) mg/dL Magnesium (1.8-2.4) mg/dL Total Bilirubin (0.2-1.0) mg/dL AST (15-37) IU/L ALT (14-63) IU/L Alkaline Phosphatase (46-116) U/L Troponin I (0.000-0.056) ng/mL Total Protein (6.4-8.2) g/dL Albumin (3.4-5.0) g/dL Globulin (2.6-4.0) g/dL Albumin/Globulin Ratio (0.9-1.6) Triglycerides (0-200) mg/dL Cholesterol (50-200) mg/dL HDL Cholesterol (40-60) mg/dL Cholesterol/HDL Ratio (3.3-6.0) TSH 3rd Generation 2.64 (0.36-3.74) uIU/mL Urine Color Urine Appearance Urine pH (5.0-8.0) Ur Specific [place] (1.001-1.035) Urine Protein (NEGATIVE) mg/dL Urine Glucose (UA) (NEGATIVE) mg/dL Urine Ketones (NEGATIVE) mg/dL Urine Occult Blood (NEGATIVE) Urine Nitrite (NEGATIVE) Urine Bilirubin (NEGATIVE) Urine Urobilinogen (<2.0) EU/dL Ur Leukocyte Esterase (NEGATIVE) Med Orders - Current: Current Medications Acetaminophen (Tylenol) 650 mg PO Q4H PRN PRN Reason: Pain (Mild 1-3)/fever Aspirin (Aspirin) 325 mg PO DAILY [facility] Atorvastatin Calcium (Lipitor) 40 mg PO BEDTIME [facility] Diltiazem HCl (Cardizem) 30 mg PO Q6H [facility] Last Admin: 12/20/18 14:55 Dose: 30 mg Sodium Chloride (Normal Saline) 500 mls @ 999 mls/hr IV .BOLUS [facility] Last Admin: 12/20/18 01:26 Dose: 999 mls/hr Ondansetron HCl (Zofran) 4 mg IVPUSH Q4H PRN PRN Reason: Nausea Discontinued Medications Aspirin (Aspirin) 324 mg PO ONETIME ONE Stop: 12/20/18 00:53 Last Admin: 12/20/18 01:09 Dose: 324 mg Diltiazem HCl (Diltiazem) 25 mg IVPUSH ONETIME ONE Stop: 12/20/18 00:52 Last Admin: 12/20/18 01:10 Dose: 25 mg Diltiazem HCl (Diltiazem) 10 mg IVPUSH ONETIME ONE Stop: 12/20/18 05:47 Last Admin: 12/20/18 09:45 Dose: Not Given Diltiazem HCl (Cardizem) 30 mg PO Q6HR [facility] Last Admin: 12/20/18 14:25 Dose: Not Given Enoxaparin Sodium (Lovenox) 123 mg SUBCUT ONETIME ONE Stop: 12/20/18 00:55 Last Admin: 12/20/18 01:10 Dose: 123 mg Potassium Chloride (Klor-Con M20) 40 meq PO ONETIME ONE Stop: 12/20/18 12:10 Last Admin: 12/20/18 12:59 Dose: 40 meq - Exam General: Reports: Alert, Oriented, Cooperative, No Acute Distress Lungs: Reports: Clear to Auscultation, Normal Respiratory Effort Cardiovascular: Reports: Regular Rate, Regular Rhythm GI/Abdominal Exam: Normal Bowel Sounds, Soft, Non-Tender, No Distention Back Exam: Reports: Normal Inspection, Full Range of Motion Extremities: Normal Inspection, Normal Range of Motion, Non-Tender, No Pedal Edema Neurological: Reports: No New Focal Deficit Psy/Mental Status: Reports: Alert, Normal Affect, Normal Mood
[2018-12-20] MEDS ORDERED: atorvaSTATin 40 MG Tab PO SCH (21:00)
[2018-12-21] MEDS ORDERED: Aspirin 325 MG Tab PO SCH (09:00)
== END 2018-12-20 17:05 | disposition home or self-care (01) ==
LOC: MW.ED 00:37 → MW.MS 01:54
PROVIDERS: ADMIT Internal Medicine; ATTEND Internal Medicine
DX: I48.91 Unspecified atrial fibrillation (principal); I10 Essential (primary) hypertension; E78.5 Hyperlipidemia, unspecified; Z88.0 Allergy status to penicillin; Z79.82 Long term (current) use of aspirin; Z79.899 Other long term (current) drug therapy
CPT/HCPCS: 36415; 71045; 71045-26; 80048; 80053; 80061; 81003; 83036; 83735; 84443; 84484; 85025; 85610; 93005; 96361; 96372; 96374; 99284; 99285-25; A9270-GY; G0378; J1650; J3490; J7040